=== PATIENT | female | born 1990 | race African-American/Black ===

== ENCOUNTER 2023-07-20 17:15 | Emergency (ER) | payer SELFPAY ==
[2023-07-20] MEDS ORDERED: Albuterol 200 PUFF (6.7GM INHALER) ONE (18:04)
[2023-07-20] MEDS ORDERED: Amoxicillin/Potassium Clav 875 MG TAB ONE (18:04)
[2023-07-20 18:34] LABS: #Lymphocytes 2.5 thou/uL (1.20-3.40); #Monocytes 0.3 thou/uL (0.11-0.59); #Neutrophils 2.3 thou/uL (1.40-6.50); %Basophils 0.9 % (0.0-1.0); %Eosinophils 0.9 % (0.0-10.0); %Lymphocytes 48.5 % (21.0-51.0); %Monocytes 6.5 % (0.0-10.0); %Neutrophils 43.2 % (42.0-75.0); Hemoglobin 12.4 g/dL (12.0-16.0); Mean Corpuscular HGB CONC 32.6 g/dL (32.0-36.0); Mean Corpuscular Hemoglobin 30.3 pg (27.0-31.0); Mean Corpuscular Volume 92.9 fl (78.0-98.0); Mean Platelet Volume 9.9 fL (7.4-10.4); Platelet Count 332 10x3/uL (130-400); RBC Distribution Width 11.6 % (11.5-14.5); Red Blood Cell (RBC) Count 4.09 mill/uL (4.20-5.40); White Blood Cell (WBC) Count 5.2 10x3/uL (4.8-10.8)
[2023-07-20 18:35] LABS: Pregnancy Test - Urine (BHCG) Negative (Negative); Pregu Control Background? CLEAR/WHITE (CLR/WHITE); Pregu Control Bar Appear? YES (CONTROL BAR); Specific Gravity 1.023 (1.002-1.036)
[2023-07-20 18:51] LABS: ALT (SGPT) 37 U/L (8-55); AST (SGOT) 16 U/L (5-34); Alkaline Phosphatase 73 U/L (40-110); Anion Gap 11 mmol/L (10-20); BUN (Urea Nitrogen) 12 mg/dL (7.0-18.7); Bilirubin, Total 0.3 mg/dL (0.2-1.2); Calc. Creatinine Clearance 0 mL/min (70-130); Carbon Dioxide 27 mmol/L (22-29); Chloride 106 mmol/L (98-107); Estimated GFR 77; Globulin 3.6 g/dL (2.4-3.5); Glucose 82 mg/dL (70-105); Potassium 3.3 mmol/L (3.5-5.1); Protein, Total 7.6 g/dL (6.0-8.3); Sodium 141 mmol/L (136-145); Troponin I Less than 0.010 ng/mL (< 0.028)
[2023-07-20] MEDS ORDERED: Potassium Chloride 20 MEQ TAB ONE (19:49)
== END 2023-07-20 20:45 | disposition home or self-care (01) ==
LOC: MADERS 17:15
DX: J20.9 Acute bronchitis, unspecified (principal); R07.9 Chest pain, unspecified; Z20.822 Contact with and (suspected) exposure to COVID-19
CPT/HCPCS: 36415; 71046; 80053; 81025; 84484; 85025; 87635; 87804; 93005

== ENCOUNTER 2024-03-12 20:42 | Emergency (ER) | payer OTHER, SELFPAY | END 2024-03-12 21:47 | disposition home or self-care (01) | LOC: MADERS 20:42 | DX: S61.217A Laceration without foreign body of left little finger without damage to nail, initial encounter (principal); S61.237A Puncture wound without foreign body of left little finger without damage to nail, initial encounter; W23.1XXA Caught, crushed, jammed, or pinched between stationary objects, initial encounter; Y99.0 Civilian activity done for income or pay ==

== ENCOUNTER 2024-04-09 09:40 | Emergency (ER) | payer SELFPAY ==
[2024-04-09] MEDS ORDERED: Lidocaine 4% Patch ONE (10:13)
[2024-04-09] MEDS ORDERED: Dexamethasone 10 MG/ML VIAL ONE (10:13)
== END 2024-04-09 10:35 | disposition home or self-care (01) ==
LOC: MADERS 09:40
DX: S29.012A Strain of muscle and tendon of back wall of thorax, initial encounter (principal); F17.290 Nicotine dependence, other tobacco product, uncomplicated; X50.0XXA Overexertion from strenuous movement or load, initial encounter
CPT/HCPCS: 96372; 99283; J1100